=== PATIENT | male | born 1955 | race Caucasian/White ===

== ENCOUNTER 2016-12-27 20:39 | Observation (INO) | payer MEDICAID ==
[2016-12-27] MEDS ORDERED: HYDROmorphone 1 MG/ML SYRINGE IVP STA (21:30)
[2016-12-27] MEDS ORDERED: SODIUM CHLORIDE 0.9% 1,000 ML IV ONE ×2 (21:30→23:13)
[2016-12-27] MEDS ORDERED: LIDOCAINE 1%-EPI 1:100000 20 ML MDV SUBQ STA (21:31)
[2016-12-27] MEDS ORDERED: LIDOCAINE 1%-EPI 1:100000 20 ML MDV ONE (22:07)
[2016-12-27] MEDS ORDERED: HYDROmorphone 1 MG/ML SYRINGE ONE (22:24)
[2016-12-27] MEDS ORDERED: SODIUM CHLORIDE 0.9% 1,000 ML IV SCH (23:45)
[2016-12-27] MEDS ORDERED: fentaNYL 25 MCG PATCH TOP SCH (23:45)
[2016-12-27] MEDS ORDERED: ACETAMINOPHEN 325 MG TABLET PO PRN (23:53)
[2016-12-27] MEDS ORDERED: SODIUM CHLORIDE FLUSH 0.9% 10 ML SYRINGE IVP PRN (23:53)
[2016-12-27] MEDS ORDERED: guaiFENesin/DEXTROMETHORPHAN 10 ML UDC PO PRN (23:55)
[2016-12-28] MEDS ORDERED: HYDROmorphone 1 MG/ML SYRINGE IVP PRN (03:11)
[2016-12-28] MEDS ORDERED: oxyCODONE 5 MG TABLET ONE (03:18)
[2016-12-28] MEDS: SODIUM CHLORIDE FLUSH 0.9% 10 ML SYRINGE IVP SCH ×2 (05:54→14:06)
[2016-12-28] MEDS ORDERED: oxyCODONE 5 MG TABLET PO PRN (07:06)
[2016-12-28] MEDS ORDERED: MAGNESIUM SULFATE 2 GRAM 50 ML IV ONE ×2 (08:30→13:15)
[2016-12-28] MEDS ORDERED: TRETINOIN TP SCH (09:00)
[2016-12-28] MEDS ORDERED: [UNRECOGNIZED DRUG - OTHER] TP SCH (09:00)
[2016-12-28] MEDS ORDERED: METHYLPHENIDATE HCL PO SCH (09:00)
[2016-12-28] MEDS ORDERED: POLYETHYLENE GLYCOL 3350 17 GM PACKET PO SCH (09:00)
[2016-12-28] MEDS ORDERED: fentaNYL 25 MCG PATCH TOP ONE (12:00)
[2016-12-28] MEDS ORDERED: MAGIC MOUTHWASH PO PRN (14:00)
[2016-12-28] MEDS ORDERED: METHYLPHENIDATE 5 MG TABLET PO SCH (14:00)
[2016-12-28] MEDS ORDERED: NON FORMULARY MED (Oxycodone Hcl/Acetaminophen [Oxycodone-Acetaminophen 10-325] 1 TAB) PO PRN (14:40)
[2016-12-28] MEDS ORDERED: ALBUTEROL NEB 2.5 MG/3 ML INH PRN (14:52)
[2016-12-29] MEDS ORDERED: POTASSIUM CHLORIDE 20 MEQ TABLET PO SCH (08:00)
[2016-12-29] MEDS ORDERED: TAMSULOSIN 0.4 MG CAPSULE PO SCH (09:00)
[2016-12-29] MEDS ORDERED: ASPIRIN EC 325 MG TABLET PO SCH (09:00)
[2016-12-29] MEDS ORDERED: LISINOPRIL 20 MG TABLET PO SCH (09:00)
[2016-12-29] MEDS ORDERED: hydroCHLOROthiazide 25 MG TABLET PO SCH (09:00)
[2016-12-29] MEDS ORDERED: METHYLPHENIDATE 5 MG TABLET PO SCH (09:00)
== END 2016-12-28 15:02 | disposition home or self-care (01) ==
PROC: 30233N1 Transfusion of Nonautologous Red Blood Cells into Peripheral Vein, Percutaneous Approach (ICD-10-PCS; principal; 2016-12-28)
DX: D50.0 Iron deficiency anemia secondary to blood loss (chronic) (principal); S01.01XA Laceration without foreign body of scalp, initial encounter; W11.XXXA Fall on and from ladder, initial encounter; Y92.009 Unspecified place in unspecified non-institutional (private) residence as the place of occurrence of the external cause; C19 Malignant neoplasm of rectosigmoid junction; C77.2 Secondary and unspecified malignant neoplasm of intra-abdominal lymph nodes; G89.3 Neoplasm related pain (acute) (chronic); K61.1 Rectal abscess; K62.5 Hemorrhage of anus and rectum; E44.1 Mild protein-calorie malnutrition; I12.9 Hypertensive chronic kidney disease with stage 1 through stage 4 chronic kidney disease, or unspecified chronic kidney disease; N18.3 Chronic kidney disease, stage 3 (moderate); E66.01 Morbid (severe) obesity due to excess calories; Z93.3 Colostomy status; Z79.82 Long term (current) use of aspirin; Z79.891 Long term (current) use of opiate analgesic; Z86.73 Personal history of transient ischemic attack (TIA), and cerebral infarction without residual deficits; Z87.891 Personal history of nicotine dependence; Z92.3 Personal history of irradiation; Z68.32 Body mass index [BMI] 32.0-32.9, adult; Z88.8 Allergy status to other drugs, medicaments and biological substances
CPT/HCPCS: 12002; 36415; 36430; 70450; 80053; 83540; 83690; 83735; 84466; 85014; 85018; 85025; 86850; 86900; 86901; 86920; 93005; 93010; 93306; 96361; 96365; 96375; 96376; 99284; 99285; A9270; G0378; J1170; P9016

== ENCOUNTER 2017-01-11 12:22 | Outpatient (CLI) | payer MEDICAID | END 2017-01-11 12:23 | disposition critical access hospital (66) | DX: I95.9 Hypotension, unspecified (principal) | CPT/HCPCS: A0425; A0427 ==

== ENCOUNTER 2017-01-11 12:27 | Emergency (ER) | payer MEDICAID ==
[2017-01-11] MEDS ORDERED: SODIUM CHLORIDE 0.9% 1,000 ML IV ONE (12:36)
== END 2017-01-11 16:17 | disposition home or self-care (01) ==
DX: E86.0 Dehydration (principal); I95.9 Hypotension, unspecified; D64.9 Anemia, unspecified; C78.5 Secondary malignant neoplasm of large intestine and rectum; I10 Essential (primary) hypertension; I45.10 Unspecified right bundle-branch block; F90.1 Attention-deficit hyperactivity disorder, predominantly hyperactive type; J45.909 Unspecified asthma, uncomplicated; R32 Unspecified urinary incontinence; H54.7 Unspecified visual loss; Z93.3 Colostomy status; Z95.828 Presence of other vascular implants and grafts; Z79.891 Long term (current) use of opiate analgesic; Z79.899 Other long term (current) drug therapy; Z79.82 Long term (current) use of aspirin; Z79.51 Long term (current) use of inhaled steroids

== ENCOUNTER 2017-02-04 16:58 | Emergency (ER) | payer MEDICAID ==
[2017-02-04] MEDS ORDERED: SODIUM CHLORIDE 0.9% 1,000 ML IV ONE (17:32)
[2017-02-04] MEDS ORDERED: HYDROmorphone 1 MG/ML SYRINGE ONE (18:26)
[2017-02-04] MEDS ORDERED: HYDROmorphone 1 MG/ML SYRINGE IVP STA (18:26)
[2017-02-04] MEDS ORDERED: IOPAMIDOL-300 100 ML VIAL IVP ONE (18:52)
== END 2017-02-04 23:47 | disposition home or self-care (01) ==
DX: D50.0 Iron deficiency anemia secondary to blood loss (chronic) (principal); R06.09 Other forms of dyspnea; C18.9 Malignant neoplasm of colon, unspecified; Z93.3 Colostomy status; I10 Essential (primary) hypertension; I45.10 Unspecified right bundle-branch block; Z79.82 Long term (current) use of aspirin
CPT/HCPCS: 36430; 71275; 80053; 83690; 85025; 86850; 86900; 86901; 86920; 93005; 93010; 96374; 99284; 99285; J1170; P9016; Q9967

== ENCOUNTER 2017-02-08 14:22 | Inpatient (IN) | payer MEDICAID ==
[2017-02-08] MEDS ORDERED: SODIUM CHLORIDE 0.9% 1,000 ML IV ONE ×4 (14:52→21:35)
[2017-02-08] MEDS ORDERED: ACETAMINOPHEN 325 MG TABLET PO PRN (15:56)
[2017-02-08] MEDS ORDERED: ONDANSETRON ODT 4 MG TABLET TL PRN (15:56)
[2017-02-08] MEDS ORDERED: ONDANSETRON 4 MG/2 ML VIAL IVP PRN (15:56)
[2017-02-08] MEDS ORDERED: TEMAZEPAM 15 MG CAPSULE PO PRN (15:56)
[2017-02-08] MEDS: PANTOPRAZOLE 40 MG VIAL IVP SCH (19:04)
[2017-02-08] MEDS: SODIUM CHLORIDE FLUSH 0.9% 10 ML SYRINGE IVP SCH (19:04)
[2017-02-08] MEDS: HYDROcod/ACETAM 5/325 MG TABLET PO PRN (20:35)
[2017-02-08] MEDS: SODIUM CHLORIDE 0.9% 1,000 ML IV SCH (23:28)
[2017-02-09] MEDS: HYDROcod/ACETAM 5/325 MG TABLET PO PRN ×3 (01:15→23:50)
[2017-02-09] MEDS ORDERED: SODIUM CHLORIDE 0.9% 1,000 ML IV ONE (01:41)
[2017-02-09] MEDS: SODIUM CHLORIDE 0.9% 1,000 ML IV SCH ×4 (02:14→19:53)
[2017-02-09] MEDS: SODIUM CHLORIDE FLUSH 0.9% 10 ML SYRINGE IVP SCH ×3 (05:49→23:50)
[2017-02-09] MEDS: PANTOPRAZOLE 40 MG VIAL IVP SCH (05:49)
[2017-02-09] MEDS: METHYLPHENIDATE 10 MG TABLET PO SCH ×2 (10:14→15:51)
[2017-02-09] MEDS: POLYETHYLENE GLYCOL 3350 17 GM PACKET PO SCH (10:18)
[2017-02-09] MEDS ORDERED: PSYLLIUM PACKET PO PRN (12:26)
[2017-02-09] MEDS: ZINC SULFATE 220 MG CAPSULE PO SCH (12:36)
[2017-02-09] MEDS ORDERED: MAGNESIUM SULFATE 2 GRAM 50 ML IV ONE (15:30)
[2017-02-10] MEDS ORDERED: HALOPERIDOL 5 MG/ML VIAL IM ONE (03:49)
[2017-02-10] MEDS: SODIUM CHLORIDE 0.9% 1,000 ML IV SCH ×5 (04:05→21:50)
[2017-02-10] MEDS: SODIUM CHLORIDE FLUSH 0.9% 10 ML SYRINGE IVP SCH ×3 (05:39→21:51)
[2017-02-10] MEDS: PANTOPRAZOLE 40 MG VIAL IVP SCH (07:09)
[2017-02-10] MEDS: ZINC SULFATE 220 MG CAPSULE PO SCH (08:57)
[2017-02-10] MEDS: METHYLPHENIDATE 10 MG TABLET PO SCH ×2 (08:58→14:28)
[2017-02-10] MEDS: POLYETHYLENE GLYCOL 3350 17 GM PACKET PO SCH (10:37)
[2017-02-10] MEDS: HYDROcod/ACETAM 5/325 MG TABLET PO PRN (10:56)
[2017-02-10] MEDS ORDERED: MAGIC MOUTHWASH 120 ML BOTTLE PO PRN (15:19)
[2017-02-10] MEDS ORDERED: MAGNESIUM SULFATE 2 GRAM 50 ML IV ONE (17:00)
[2017-02-10] MEDS: DIPHENOX/ATROPINE 2.5/0.025 MG TABLET PO PRN (17:54)
[2017-02-10] MEDS: NEUTRA-PHOS 250 MG TABLET PO SCH (17:54)
[2017-02-10] MEDS: MIN OIL/DIMETHICON/COCONUT OIL 92 GM TUBE TOP ONE (20:02)
[2017-02-10] MEDS: HEPARIN 5,000 UNIT/ML VIAL SUBQ SCH (21:51)
[2017-02-10] MEDS: NYSTATIN POWDER 15 GM TOP SCH (21:51)
[2017-02-11] MEDS: DIPHENOX/ATROPINE 2.5/0.025 MG TABLET PO PRN ×2 (01:22→09:15)
[2017-02-11] MEDS: SODIUM CHLORIDE 0.9% 1,000 ML IV SCH ×8 (01:22→23:47)
[2017-02-11] MEDS: HYDROcod/ACETAM 10 MG/325 MG TABLET PO PRN ×5 (01:57→21:23)
[2017-02-11] MEDS: ALBUTEROL NEB 2.5 MG/3 ML INH PRN ×2 (01:59→17:59)
[2017-02-11] MEDS: SODIUM CHLORIDE FLUSH 0.9% 10 ML SYRINGE IVP SCH ×3 (05:37→21:12)
[2017-02-11] MEDS: PANTOPRAZOLE 40 MG VIAL IVP SCH (05:56)
[2017-02-11] MEDS ORDERED: MAGIC MOUTHWASH PO PRN (09:00)
[2017-02-11] MEDS: NEUTRA-PHOS 250 MG TABLET PO SCH ×3 (09:28→17:24)
[2017-02-11] MEDS: METHYLPHENIDATE 10 MG TABLET PO SCH ×2 (09:35→14:16)
[2017-02-11] MEDS: CALCIUM CARBONATE CHEW 500 MG TABLET PO SCH ×2 (09:35→21:04)
[2017-02-11] MEDS: ZINC SULFATE 220 MG CAPSULE PO SCH (09:36)
[2017-02-11] MEDS: POLYETHYLENE GLYCOL 3350 17 GM PACKET PO SCH (09:38)
[2017-02-11] MEDS: HEPARIN 5,000 UNIT/ML VIAL SUBQ SCH ×2 (09:39→21:05)
[2017-02-11] MEDS: NYSTATIN POWDER 15 GM TOP SCH ×2 (10:39→21:12)
[2017-02-11] MEDS ORDERED: OCTREOTIDE 100 MCG/ML SUBQ ONE (13:12)
[2017-02-11] MEDS: MAGNESIUM SULFATE 2 GRAM 50 ML IV SCH ×2 (13:35→13:36)
[2017-02-11] MEDS: DIPHENOX/ATROPINE 2.5/0.025 MG TABLET PO SCH ×2 (17:23→21:04)
[2017-02-11] MEDS: LOPERAMIDE 2 MG CAPSULE PO SCH ×2 (18:15→21:05)
[2017-02-11] MEDS: MIN OIL/DIMETHICON/COCONUT OIL 92 GM TUBE TOP ONE (22:20)
[2017-02-12] MEDS: HYDROcod/ACETAM 10 MG/325 MG TABLET PO PRN ×5 (01:50→21:10)
[2017-02-12] MEDS: SODIUM CHLORIDE 0.9% 1,000 ML IV SCH ×5 (03:40→19:28)
[2017-02-12] MEDS: SODIUM CHLORIDE FLUSH 0.9% 10 ML SYRINGE IVP SCH ×3 (05:57→21:09)
[2017-02-12] MEDS: PANTOPRAZOLE 40 MG VIAL IVP SCH (06:31)
[2017-02-12] MEDS: MAGNESIUM SULFATE 2 GRAM 50 ML IV SCH ×2 (07:18→08:36)
[2017-02-12] MEDS: LOPERAMIDE 2 MG CAPSULE PO SCH ×4 (08:29→21:09)
[2017-02-12] MEDS: DIPHENOX/ATROPINE 2.5/0.025 MG TABLET PO SCH ×5 (08:30→21:10)
[2017-02-12] MEDS: METHYLPHENIDATE 10 MG TABLET PO SCH ×2 (08:30→14:49)
[2017-02-12] MEDS: NEUTRA-PHOS 250 MG TABLET PO SCH ×3 (08:31→17:25)
[2017-02-12] MEDS: ZINC SULFATE 220 MG CAPSULE PO SCH (08:31)
[2017-02-12] MEDS: POLYETHYLENE GLYCOL 3350 17 GM PACKET PO SCH (08:32)
[2017-02-12] MEDS: HEPARIN 5,000 UNIT/ML VIAL SUBQ SCH ×2 (08:32→21:10)
[2017-02-12] MEDS: NYSTATIN POWDER 15 GM TOP SCH ×2 (08:38→21:09)
[2017-02-12] MEDS: CALCIUM CARBONATE CHEW 500 MG TABLET PO SCH ×2 (08:38→21:10)
[2017-02-12] MEDS: OCTREOTIDE 100 MCG/ML SUBQ SCH (21:09)
[2017-02-13] MEDS: HYDROcod/ACETAM 10 MG/325 MG TABLET PO PRN ×5 (01:50→21:12)
[2017-02-13] MEDS: SODIUM CHLORIDE 0.9% 1,000 ML IV SCH ×6 (04:36→21:10)
[2017-02-13] MEDS: PANTOPRAZOLE 40 MG VIAL IVP SCH (07:03)
[2017-02-13] MEDS: OCTREOTIDE 100 MCG/ML SUBQ SCH (07:07)
[2017-02-13] MEDS: SODIUM CHLORIDE FLUSH 0.9% 10 ML SYRINGE IVP SCH ×3 (07:08→22:04)
[2017-02-13] MEDS: METHYLPHENIDATE 10 MG TABLET PO SCH ×3 (08:39→14:10)
[2017-02-13] MEDS: DIPHENOX/ATROPINE 2.5/0.025 MG TABLET PO SCH ×4 (08:39→21:07)
[2017-02-13] MEDS: ZINC SULFATE 220 MG CAPSULE PO SCH (08:40)
[2017-02-13] MEDS: NEUTRA-PHOS 250 MG TABLET PO SCH ×3 (08:41→17:12)
[2017-02-13] MEDS: CALCIUM CARBONATE CHEW 500 MG TABLET PO SCH ×2 (08:44→21:07)
[2017-02-13] MEDS: HEPARIN 5,000 UNIT/ML VIAL SUBQ SCH ×2 (08:46→21:08)
[2017-02-13] MEDS: LOPERAMIDE 2 MG CAPSULE PO SCH ×4 (08:51→20:58)
[2017-02-13] MEDS: POLYETHYLENE GLYCOL 3350 17 GM PACKET PO SCH (08:51)
[2017-02-13] MEDS: NYSTATIN POWDER 15 GM TOP SCH ×2 (09:40→22:04)
[2017-02-13] MEDS: ALBUTEROL NEB 2.5 MG/3 ML INH PRN (11:20)
[2017-02-13] MEDS: OCTREOTIDE 100 MCG/ML VIAL SUBQ SCH ×2 (14:03→21:08)
[2017-02-14] MEDS: SODIUM CHLORIDE 0.9% 1,000 ML IV SCH ×6 (01:30→23:05)
[2017-02-14] MEDS: ALBUTEROL NEB 2.5 MG/3 ML INH PRN (01:30)
[2017-02-14] MEDS: HYDROcod/ACETAM 10 MG/325 MG TABLET PO PRN ×3 (01:46→13:50)
[2017-02-14] MEDS: OCTREOTIDE 100 MCG/ML VIAL SUBQ SCH ×3 (06:29→22:59)
[2017-02-14] MEDS: PANTOPRAZOLE 40 MG VIAL IVP SCH (06:30)
[2017-02-14] MEDS: SODIUM CHLORIDE FLUSH 0.9% 10 ML SYRINGE IVP SCH ×2 (06:30→14:04)
[2017-02-14] MEDS: SODIUM CHLORIDE FLUSH 0.9% 10 ML SYRINGE IVP PRN (06:30)
[2017-02-14] MEDS: NEUTRA-PHOS 250 MG TABLET PO SCH ×3 (09:19→19:15)
[2017-02-14] MEDS: DIPHENOX/ATROPINE 2.5/0.025 MG TABLET PO SCH ×4 (09:19→22:56)
[2017-02-14] MEDS: CALCIUM CARBONATE CHEW 500 MG TABLET PO SCH ×2 (09:20→22:52)
[2017-02-14] MEDS: ZINC SULFATE 220 MG CAPSULE PO SCH (09:20)
[2017-02-14] MEDS: HEPARIN 5,000 UNIT/ML VIAL SUBQ SCH ×2 (09:25→22:47)
[2017-02-14] MEDS: LOPERAMIDE 2 MG CAPSULE PO SCH ×3 (09:37→19:15)
[2017-02-14] MEDS: NYSTATIN POWDER 15 GM TOP SCH ×2 (09:37→22:52)
[2017-02-14] MEDS: METHYLPHENIDATE 10 MG TABLET PO SCH (13:50)
[2017-02-14] MEDS ORDERED: MAGNESIUM SULFATE 2 GRAM 50 ML IV ONE (16:00)
[2017-02-15] MEDS: SODIUM CHLORIDE FLUSH 0.9% 10 ML SYRINGE IVP SCH ×4 (00:47→20:32)
[2017-02-15] MEDS: OCTREOTIDE 100 MCG/ML VIAL SUBQ SCH ×3 (06:03→20:31)
[2017-02-15] MEDS: PANTOPRAZOLE 40 MG VIAL IVP SCH (06:03)
[2017-02-15] MEDS: DIPHENOX/ATROPINE 2.5/0.025 MG TABLET PO SCH ×4 (08:55→20:28)
[2017-02-15] MEDS: NEUTRA-PHOS 250 MG TABLET PO SCH ×3 (08:55→16:17)
[2017-02-15] MEDS: ZINC SULFATE 220 MG CAPSULE PO SCH (08:55)
[2017-02-15] MEDS: METHYLPHENIDATE 10 MG TABLET PO SCH ×2 (08:56→13:45)
[2017-02-15] MEDS: CALCIUM CARBONATE CHEW 500 MG TABLET PO SCH ×2 (08:56→20:30)
[2017-02-15] MEDS: NYSTATIN POWDER 15 GM TOP SCH ×2 (08:59→20:31)
[2017-02-15] MEDS: HEPARIN 5,000 UNIT/ML VIAL SUBQ SCH ×2 (09:01→20:33)
[2017-02-15] MEDS: SODIUM CHLORIDE 0.9% 1,000 ML IV SCH (12:41)
[2017-02-15] MEDS: ALBUTEROL NEB 2.5 MG/3 ML INH PRN (13:45)
[2017-02-15] MEDS ORDERED: SUCRALFATE 1 GM/10 ML UDC PO PRN (14:26)
[2017-02-15] MEDS: SODIUM CHLORIDE FLUSH 0.9% 10 ML SYRINGE IVP PRN (14:59)
[2017-02-15] MEDS: DEXTROSE 5% 1,000 ML IV SCH (15:02)
[2017-02-15] MEDS ORDERED: NON FORMULARY MED PO PRN (15:14)
[2017-02-15] MEDS: HYDROcod/ACETAM 10 MG/325 MG TABLET PO PRN ×2 (16:17→20:28)
[2017-02-16] MEDS: HYDROcod/ACETAM 10 MG/325 MG TABLET PO PRN ×3 (00:19→21:13)
[2017-02-16] MEDS: DEXTROSE 5% 1,000 ML IV SCH ×2 (01:20→13:29)
[2017-02-16] MEDS: OCTREOTIDE 100 MCG/ML VIAL SUBQ SCH ×3 (05:46→21:21)
[2017-02-16] MEDS: SODIUM CHLORIDE FLUSH 0.9% 10 ML SYRINGE IVP SCH ×3 (05:46→21:22)
[2017-02-16] MEDS: PANTOPRAZOLE 40 MG VIAL IVP SCH (06:30)
[2017-02-16] MEDS: CALCIUM CARBONATE CHEW 500 MG TABLET PO SCH ×2 (10:21→21:15)
[2017-02-16] MEDS: NEUTRA-PHOS 250 MG TABLET PO SCH ×3 (10:21→18:28)
[2017-02-16] MEDS: ZINC SULFATE 220 MG CAPSULE PO SCH (10:22)
[2017-02-16] MEDS: METHYLPHENIDATE 10 MG TABLET PO SCH ×2 (10:22→13:30)
[2017-02-16] MEDS: DIPHENOX/ATROPINE 2.5/0.025 MG TABLET PO SCH ×4 (10:24→21:13)
[2017-02-16] MEDS: NYSTATIN POWDER 15 GM TOP SCH ×2 (10:25→21:13)
[2017-02-16] MEDS: HEPARIN 5,000 UNIT/ML VIAL SUBQ SCH ×2 (10:25→21:15)
[2017-02-17] MEDS: DEXTROSE 5% 1,000 ML IV SCH ×2 (01:01→14:32)
[2017-02-17] MEDS: HYDROcod/ACETAM 10 MG/325 MG TABLET PO PRN ×3 (05:55→20:52)
[2017-02-17] MEDS: OCTREOTIDE 100 MCG/ML VIAL SUBQ SCH ×3 (05:56→20:55)
[2017-02-17] MEDS: PANTOPRAZOLE 40 MG VIAL IVP SCH (05:57)
[2017-02-17] MEDS: SODIUM CHLORIDE FLUSH 0.9% 10 ML SYRINGE IVP SCH ×3 (07:04→20:56)
[2017-02-17] MEDS: ZINC SULFATE 220 MG CAPSULE PO SCH (10:20)
[2017-02-17] MEDS: NEUTRA-PHOS 250 MG TABLET PO SCH ×3 (10:20→17:18)
[2017-02-17] MEDS: CALCIUM CARBONATE CHEW 500 MG TABLET PO SCH ×2 (10:20→20:52)
[2017-02-17] MEDS: DIPHENOX/ATROPINE 2.5/0.025 MG TABLET PO SCH ×4 (10:21→20:52)
[2017-02-17] MEDS: HEPARIN 5,000 UNIT/ML VIAL SUBQ SCH ×2 (10:22→20:54)
[2017-02-17] MEDS: NYSTATIN POWDER 15 GM TOP SCH ×2 (10:22→20:54)
[2017-02-17] MEDS: METHYLPHENIDATE 10 MG TABLET PO SCH (13:59)
[2017-02-18] MEDS: DEXTROSE 5% 1,000 ML IV SCH (00:17)
[2017-02-18] MEDS: SODIUM CHLORIDE FLUSH 0.9% 10 ML SYRINGE IVP PRN ×3 (05:01→06:35)
[2017-02-18] MEDS: OCTREOTIDE 100 MCG/ML VIAL SUBQ SCH (06:34)
[2017-02-18] MEDS: HYDROcod/ACETAM 10 MG/325 MG TABLET PO PRN ×3 (06:34→20:58)
[2017-02-18] MEDS: SODIUM CHLORIDE FLUSH 0.9% 10 ML SYRINGE IVP SCH ×3 (06:35→20:59)
[2017-02-18] MEDS: PANTOPRAZOLE 40 MG VIAL IVP SCH (06:35)
[2017-02-18] MEDS: ZINC SULFATE 220 MG CAPSULE PO SCH (08:20)
[2017-02-18] MEDS: NEUTRA-PHOS 250 MG TABLET PO SCH (08:20)
[2017-02-18] MEDS: CALCIUM CARBONATE CHEW 500 MG TABLET PO SCH ×2 (08:20→19:40)
[2017-02-18] MEDS: DIPHENOX/ATROPINE 2.5/0.025 MG TABLET PO SCH ×4 (08:20→20:59)
[2017-02-18] MEDS: HEPARIN 5,000 UNIT/ML VIAL SUBQ SCH ×2 (08:22→19:40)
[2017-02-18] MEDS: NYSTATIN POWDER 15 GM TOP SCH ×2 (08:48→20:59)
[2017-02-18] MEDS: METHYLPHENIDATE 10 MG TABLET PO SCH (13:24)
[2017-02-18] MEDS: MAGNESIUM OXIDE 400 MG TABLET PO SCH (13:24)
[2017-02-18] MEDS ORDERED: POTASSIUM CHLORIDE 10 MEQ CAPSULE PO SCH (14:00)
[2017-02-18] MEDS: POTASSIUM CHLORIDE 10 MEQ CAPSULE PO SCH (17:05)
[2017-02-19] MEDS: SODIUM CHLORIDE FLUSH 0.9% 10 ML SYRINGE IVP SCH (06:09)
[2017-02-19] MEDS ORDERED: PANTOPRAZOLE 40 MG TABLET PO SCH (07:00)
[2017-02-19] MEDS: SODIUM CHLORIDE FLUSH 0.9% 10 ML SYRINGE IVP PRN (08:10)
[2017-02-19] MEDS: HYDROcod/ACETAM 10 MG/325 MG TABLET PO PRN ×2 (09:06→12:52)
[2017-02-19] MEDS: MAGNESIUM OXIDE 400 MG TABLET PO SCH (09:07)
[2017-02-19] MEDS: DIPHENOX/ATROPINE 2.5/0.025 MG TABLET PO SCH ×2 (09:08→12:52)
[2017-02-19] MEDS: ZINC SULFATE 220 MG CAPSULE PO SCH (09:08)
[2017-02-19] MEDS: POTASSIUM CHLORIDE 10 MEQ CAPSULE PO SCH (09:08)
[2017-02-19] MEDS: CALCIUM CARBONATE CHEW 500 MG TABLET PO SCH (09:08)
[2017-02-19] MEDS: HEPARIN 5,000 UNIT/ML VIAL SUBQ SCH (09:15)
[2017-02-19] MEDS: NYSTATIN POWDER 15 GM TOP SCH (09:16)
[2017-02-19] MEDS: METHYLPHENIDATE 10 MG TABLET PO SCH (12:55)
== END 2017-02-19 13:30 | disposition home or self-care (01) | DRG 683 ==
DX: N17.9 Acute kidney failure, unspecified (principal); E87.1 Hypo-osmolality and hyponatremia; C19 Malignant neoplasm of rectosigmoid junction; C77.2 Secondary and unspecified malignant neoplasm of intra-abdominal lymph nodes; E86.0 Dehydration; I95.9 Hypotension, unspecified; I95.1 Orthostatic hypotension; G89.3 Neoplasm related pain (acute) (chronic); Z93.3 Colostomy status; I12.9 Hypertensive chronic kidney disease with stage 1 through stage 4 chronic kidney disease, or unspecified chronic kidney disease; N18.3 Chronic kidney disease, stage 3 (moderate); J45.909 Unspecified asthma, uncomplicated; L27.0 Generalized skin eruption due to drugs and medicaments taken internally; K13.79 Other lesions of oral mucosa; D50.0 Iron deficiency anemia secondary to blood loss (chronic); E83.42 Hypomagnesemia; R19.7 Diarrhea, unspecified; K59.00 Constipation, unspecified; T45.1X5D Adverse effect of antineoplastic and immunosuppressive drugs, subsequent encounter; G62.2 Polyneuropathy due to other toxic agents; S22.31XD Fracture of one rib, right side, subsequent encounter for fracture with routine healing; W11.XXXD Fall on and from ladder, subsequent encounter; Z86.73 Personal history of transient ischemic attack (TIA), and cerebral infarction without residual deficits; Z79.82 Long term (current) use of aspirin; Z79.891 Long term (current) use of opiate analgesic; Z79.51 Long term (current) use of inhaled steroids; Z79.01 Long term (current) use of anticoagulants; Z79.899 Other long term (current) drug therapy; Z87.891 Personal history of nicotine dependence; Z91.81 History of falling

== ENCOUNTER 2017-03-06 11:20 | Outpatient (CLI) | payer MEDICAID ==
--- NOTE | 2017-03-07 05:55 | CONSULTATION NOTE ---
DATE OF CONSULTATION: 03/06/2017 00:00:00 REQUESTING PROVIDER: Ira Iniguez MD. TOPIC: Follow up palliative care consult. TIME: 13:45-14:45 Thank you, Ira Iniguez, for asking the palliative care consult service to be involved in the care of your patient. I have been asked to provide support for pain and symptom management and transitions of care. BRIEF HISTORY OF PRESENT ILLNESS: This is a 62-year-old slightly anxious gentleman who has metastatic recurrent rectal adenocarcinoma involving retroperitoneal lymph nodes. He was most recently hospitalized from 02/08 to related to acute kidney injury secondary to severe dehydration, hypotension, hyponatremia, chronic pain, and high volume colostomy output. On discharge, it has been complicated. He has been homeless, somewhat fragile both physically and emotionally. They were able to stay at a friend's, which was not ideal, in a guest room and currently are heading over to [place] for a month, but have no further housing arrangements after that. He has been on Erbitux and irinotecan as second line therapy, but given the acuity of his symptoms and recent hospitalization, has been getting the Erbitux only. The patient continues to suffer from less than adequate fluid intake and high volume output from his colostomy with multiple symptoms that are adding to his situation. The patient does present with acute pain at 10/10 of his left hip. He did have a fall and this pain has continued to progress. Is scheduled by his oncologist, Dr. Iniguez, to have a CT scan in the next couple of days with the hope to define the etiology regarding this. He reports his hip pain at a 10/10. He has severe peripheral neuropathy in his fingertips. This is a 6/10, sharp, shooting. He does have kind of a pressure, full pain in his stoma that is a 4/10, as well as he has residual rectal pain from his tumor at 6/10. He reports his pain control is quite poor, though when reviewed what he is actually taking, he is only taking his oxycodone 10/325 mg in response to the pain maybe 3 or 4 times a day. His pain is such that it is severely immobilizing him and decreasing his functional status. He does get relief with offloading with a walker, but is required to get in and out of the car and in and out of his RV. He has not tried any other pain medication other than the fentanyl, which for some reason he disliked and felt like he had about reaction to. His goal would be able to be more mobile and to be able to ambulate improved pain management. His other symptom is anorexia. This is multifactorial in origin. Nothing tastes good. His mouth is healing, though, he still complains of some soreness. He does have "magic mouthwash" that he uses only intermittently. He has early satiety, has had difficulties given his situation as far as finding things that appeal to him. His reports his diet is heavy on the sugar and not very nutritious. He reports he is pushing fluids, though it is mostly apple juice, which can cause increased loose stools as well. Diarrhea. His current output in his stool is still quite watery with a slight thickened mealy look to it. It is not formed stool. He has a huge protruding stoma into his colostomy bag. He reports it often "pops off" and this is quite discouraging for him as well. He is presenting with dehydration, does get behind on his fluids. He has been using his Lomotil, it sounds like about 3, maybe 4 tabs in 24 hours. He has not been intentionally following his regimen regarding this. Anxiety. The patient is quite anxious. He does understand he has stage IV cancer. His overwhelming concern is of course his homelessness and financial stressors. This has caused a lot of distress between the 2 of them as a couple. They do have a temporary solution for 4 weeks at [place] and will be seeing Dr. Iniguez over there, but do expect to be coming back to the [place] on a regular basis. He does have difficulty tracking. He attributes this to his ADHD and has been taking his Ritalin. SYMPTOM BURDEN: As noted above. He has pain, his hip pain is most prominent. He does report severe fatigue, some intermittent nausea, poor appetite, intermittent shortness of breath, anxiety, depression, and views his quality of life as quite poor currently. ALLERGIES 1. OXALIPLATIN. 2. DIPHENHYDRAMINE. 3. FENTANYL. CURRENT MEDICATIONS Includes 1. Oxycodone/acetaminophen 10/325 one-two tabs every 4 hours as needed for pain. 2. Lomotil 1-2 tabs up to 4 times a day. 3. Methylphenidate 60 mg in the morning, 40 at 2. 4. Ondansetron 4 mg ODT q.4 hours as needed for nausea and vomiting. 5. Magic mouthwash every 4 hours as needed. 6. Magnesium oxide 400 mg b.i.d. 7. Aspirin 325 mg daily. 8. Potassium 10 mEq daily. CODE STATUS: THE PATIENT IS CURRENTLY A FULL CODE. 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 BRIEF SOCIAL HISTORY: He is to Sky. They have been coming up on 33 years. They spent about 25 years on [facility]. They do have 1 daughter, Kimi. He is currently working on trying to set up a new "office." Currently homeless, continues to have many stressors related to this. PERFORMANCE STATUS: The patient is currently quite deconditioned, is using a walker, has difficulty getting from sitting to standing secondary to the pain, is only able to ambulate short distances. It is very difficult to get in and out of vehicles. Has increased difficulty with movement with symptoms of dehydration. REVIEW OF SYSTEMS ENT: Denies any trouble with swallowing. Does have difficulty with hearing, has poor teeth with difficulty chewing. CARDIOVASCULAR: Denies chest pain. RESPIRATORY: Denies tightness. He does have a history of COPD and asthma. GASTROINTESTINAL: As noted, has watery stools from his colostomy. Continues to be problematic as far as fluid output. GENITOURINARY: Some urgency. MUSCULOSKELETAL: Reports overall weakness and deconditioning, increased hip pain. INTEGUMENTARY: Currently, no rash, although the skin is quite dry. NEUROLOGIC: Denies any memory problems, though does have severe, sharp, shooting pains and peripheral neuropathy in his fingers, numbness in his feet. PSYCHIATRIC: Admits to depression and anxiety. ENDOCRINE: No history of diabetes or hypothyroidism. HEMATOLOGIC/IMMUNOLOGIC: No recent infections, though he does present with a hematocrit of 28.3, hemoglobin 9.3, and his white count of 9.9. LABORATORY: Other labs of concern is his BUN 21, creatinine 2.5, GFR 26, glucose 107. We did add magnesium, as he does have a history of low magnesium, it was 1.6. This is improved from hospitalization. His protein is somewhat low at 6.4, albumin 2.5. His CEA, though, is elevated at 24.2. PHYSICAL EXAMINATION GENERAL APPEARANCE: He appears quite pale and fatigued. Has pain behaviors with trying to reposition. Was unable to stand secondary to the pain. He is quite verbal as far as processing information. EYES: Periorbital edema. ENT: Poor dentition. RESPIRATORY: Breath sounds are diminished. No wheezing noted, though he has decreased breath sounds in his right lower lobe. CARDIOVASCULAR: He is tachycardic at 120. His pulse is slightly weak and thready , his blood pressure was 138/84, temperature 36.8. His weight was 200.86. ABDOMEN: Quite rounded and taut. He does have hyperactive bowel tones. SKIN: Color pale. His hands are quite dry and peeling. EXTREMITIES: He does have lower extremity doughy pitting edema up to above his knees. This has been longstanding for him. PALLIATIVE CARE DISCUSSION: Who is present, myself and the patient. The patient does express concern over his current situation. He does recognize he has stage IV disease, though when asked what that means to him, he says he knows he is going to , but does see that as anywhere from 1-5 years. He admits to being somewhat scared about the outcome. He knows that there is an end point out there , but currently does not feel the need to know or to explore this further. Is hoping his situation will become more stable so he can concentrate on things that might be of meaning to him in the future. I did speak to Sky on the phone. She herself is frazzled in trying to get them transitioned over to [place], has taken a lot just to manage day-to- day activities. We spoke on the phone and she was off doing laundry and getting lunch from a friend. She tries to remain supportive and upbeat, but is feeling quite overwhelmed and tired. IMPRESSION: This is a feisty 62-year-old gentleman who now presents with again high symptom burden with uncontrolled pain in his left hip, unknown etiology. He also has diarrhea, anxiety, and financial stressors. He is continuing to hope to be able to continue with treatments, though he is getting tired and is having more side effects and some functional decline. RECOMMENDATIONS/COUNSELING DONE 1. Acute on chronic pain. He is currently using his oxycodone 10 mg/325 mg 1 tablet every 4-5 hours with very poor control. The patient is not opioid naive, has used pain medications for a long period of time. He reports he does not get sedated, occasionally loopy. Counseling done regarding the short-acting nature of his current medication, though concerned about the acetaminophen. I will go ahead and put him on oxycodone 10 mg tabs, he can use 1-2 every 3 hours. He is instructed to log this and to balance the effects of sedation with pain relief. Currently, he is essentially nonfunctional given this pain and does report when he takes a pain pill, it does assist him with movement, it is of course intermittent in nature because it is exacerbated with any kind of weightbearing or twisting motion. He is due to have a scan in the next couple of days. He is to call me when this is completed. It is unclear if he has some kind of an injury. If this is osteoarthritic in nature, can proceed with counseling and evaluating for methadone use, particularly given his peripheral neuropathy and/ or add meloxicam if his kidney function improves. The other option is if it is related to his disease process, he may or may not be a candidate for some further radiation for pain relief. We did review all these options and particularly methadone given the nature of the drug, particularly since he does not want to be having any alteration, this would be probably a good match with him, beginning education was provided regarding this. 2. Diarrhea. The patient is taking mag oxide 400 mg. When asked how this is prescribed, he reports he was told a long time ago that it was good for him. I did ask to add magnesium to labs. It was 1.6; 1.7 is normal. He has been as low as 1.3. Given the severity of his ongoing diarrhea, I did ask him to hold it for now and can add magnesium again to his counts in a few weeks. He also has not been consistent or adherent to taking 2 Lomotil 4 times a day. It sounds like he has been taking about 3 or 4 tabs total, as well as combining it with Imodium per Dr. Iniguez's instruction. I did revisit adding Metamucil to slow down the transit time. He remains somewhat resistant to this, though I did give him the rationale. He will consider it. Did instruct on the need to again try and stay hydrated as best he can. He may need ongoing fluid support though, given his current situation. 3. Anxiety. This is multifactorial in origin as well. Did counseling for normalizing his current feelings of vulnerability, acknowledged the financial stressors and reassured him of our support. [place] and we can set up an appointment after he has a scan done for his next plan for pain management. 4. Advanced care planning. The patient has completed an advanced directive. It is quite elaborate but is a FULL CODE. He will at the point of time transition to comfort measures, as the goals of care for comfort. Need to focus on a safe plan at end of life. The patient does recognize the seriousness of his illness, though I suspect he is somewhat unrealistic about his prognosis, but his goals to be supported are to improve his quality and quantity of life as much as possible. TIME SPENT: 60 minutes with greater than 50% of this spent in counseling and coordination of care, reviewing symptoms, instruction and counseling on pain management and options, as well as anticipatory guidance. JOB #: [id number] SHERMAN JOB #:[id number] JELENA
== END 2017-03-06 11:21 | disposition home or self-care (01) ==
LOC: PC 11:20
PROVIDERS: ATTEND Nurse Practitioner Adult Health
DX: Z51.5 Encounter for palliative care (principal); M25.552 Pain in left hip; G89.3 Neoplasm related pain (acute) (chronic); C20 Malignant neoplasm of rectum; C77.2 Secondary and unspecified malignant neoplasm of intra-abdominal lymph nodes; Z79.891 Long term (current) use of opiate analgesic; R63.0 Anorexia; R68.81 Early satiety; R19.7 Diarrhea, unspecified; Z93.3 Colostomy status; E86.0 Dehydration; F41.9 Anxiety disorder, unspecified; Z59.0 Homelessness; F90.1 Attention-deficit hyperactivity disorder, predominantly hyperactive type; R11.0 Nausea; R06.02 Shortness of breath; F32.9 Major depressive disorder, single episode, unspecified; R60.0 Localized edema
CPT/HCPCS: 99215